=== PATIENT | female | born 1995 | race Hispanic/Latino ===

== ENCOUNTER 2024-11-18 08:37 | Emergency (ER) | payer OTHER ==
[~2024-11-18] VITALS: Ht 170.2 cm; Wt 95.3 kg
[2024-11-18 08:38] VITALS: PULSE 89; RESP 18; TEMP 98.4; O2SAT 100
[2024-11-18] MEDS ORDERED: PREDNISONE20 MG PO (09:07)
[2024-11-18] MEDS ORDERED: NEURONTIN100 MG PO (09:09)
== END 2024-11-18 09:25 | disposition home or self-care (01) ==
LOC: ER 08:48
DX: M54.2 Cervicalgia (principal); M54.12 Radiculopathy, cervical region; M79.621 Pain in right upper arm; I10 Essential (primary) hypertension; E78.5 Hyperlipidemia, unspecified; H91.3 Deaf nonspeaking, not elsewhere classified
CPT/HCPCS: 99283